=== PATIENT | female | born 2000 | race Caucasian/White ===

== ENCOUNTER → 2021-11-28 16:03 | Outpatient (BNVA) | payer MEDICAID, SELFPAY | PROVIDERS: Family Provider Pediatrics; Visit Provider Nurse Practitioner Family | DX: R05.9 Cough, unspecified (principal); J10.1 Influenza due to other identified influenza virus with other respiratory manifestations | CPT/HCPCS: 87400 ==

== ENCOUNTER → 2022-05-15 11:31 | Outpatient (BNVA) | payer OTHER, MEDICAID, SELFPAY | PROVIDERS: Family Provider Pediatrics; Visit Provider Emergency Medicine | DX: J32.9 Chronic sinusitis, unspecified (principal); B34.9 Viral infection, unspecified; Z20.822 Contact with and (suspected) exposure to COVID-19 | CPT/HCPCS: 87426 ==

== ENCOUNTER 2023-08-12 20:12 | Emergency (ER) | payer MEDICARE, MEDICAID, SELFPAY ==
[2023-08-12 20:16] VITALS: BP 110/69; PULSE 84; RESP 16; TEMP 36.5; O2SAT 98; BMI 22.5
--- NOTE | 2023-08-12 20:39 | W.ED.ABDPA2 ---
HPI - Abdominal Pain General: Chief Complaint: Abdominal Pain Stated Complaint: fever, body aches, hurt stomach Time Seen by Provider: 08/12/23 20:15 History of Present Illness: 23-year-old female comes in today with bodyaches, cough, stuffy nose, lower abdominal pain, starting this morning. Patient appears mildly unwell but not toxic. Patient has Down syndrome. Patient has a history of constipation. Patient has had cardiac surgery in [facility]. Associated Symptoms: Denies fever(s) and vomiting Review of Systems General: Reports: 10 or more systems reviewed and unremarkable except in HPI and below Const: Reports: body aches; Denies: fever(s) Eyes: Denies: eye discomfort ENMT: Reports: nasal congestion Card: Denies: chest pain Resp: Denies: dyspnea GI: Reports: abdominal pain; Denies: vomiting : Denies: difficulty voiding Musc: Denies: neck pain or back pain Skin/Breast: Denies: rash Neuro: Denies: headache(s) [facility] PFSH: Medical History Down syndrome Social History Smoking and tobacco/nicotine status: never used tobacco/nicotine Second hand smoke exposure: No Alcohol intake: never Substance/Drug Use: never Adopted: Yes Physical Exam Const: COMMON NORMALS: alert HENMT: COMMON NORMALS: normocephalic HEAD & SCALP: normocephalic NOSE: Nasal discharge present MOUTH: Normal oral and palatal mucosa present THROAT: posterior oropharynx normal Neck/C-Spine: COMMON NORMALS: full ROM Resp: COMMON NORMALS: normal respiratory effort and clear to auscultation bilaterally AUSCULTATION: clear to auscultation bilaterally Cardio: COMMON NORMALS: regular rate and regular rhythm RATE: regular rate RHYTHM: regular rhythm GI: COMMON NORMALS: Soft to palpation AUSCULTATION: Yes normoactive bowel sounds PALPATION: Yes Soft to palpation and Yes Tenderness to palpation present (GI) (Bilateral lower abdomen) : COMMON NORMALS: Yes no CVA tenderness BLADDER/KIDNEY EXAM: Yes no CVA tenderness Back/Pelvis: COMMON NORMALS: no CVA tenderness and thoracic and lumbar spine normal to inspection Extremity: COMMON NORMALS: normal to inspection Neuro: SENSORIUM/ORIENTATION: Yes alert Skin: COMMON NORMALS: turgor normal GENERAL SKIN EXAM: turgor normal Course Vital Signs: Vital signs: Vital Signs Temperature 97.7 F 08/12/23 20:16 Pulse Rate 84 08/12/23 20:16 Respiratory Rate 16 08/12/23 20:16 Blood Pressure 110/69 08/12/23 20:16 Pulse Oximetry 98 08/12/23 20:16 MDM - Abdominal Pain Medical Decision Making Patient was brought in by father aysha for concerns of lower abdominal pain. On exam patient's abdomen was soft with tenderness in the lower abdomen. Bowel sounds are present. Negative psoas sign. Skin is warm and dry. Vital signs are normal. Differential diagnosis includes but not limited to constipation, urinary tract infection, appendicitis, viral syndrome. CBC, CMP, CRP were normal. Urinalysis had a increased amount of white blood cells but also was contaminated with skin cells. Respiratory 2 panel was outstanding and patient will call back for results. We will go ahead and treat for mild urinary tract infection with cephalexin 250 twice a day for 5 days. This may also help with patient is constipated as cephalexin often will cause the bowels increase peristalsis. Father and patient both report understanding and agreed to plan. Lab Data 08/12/23 21:30 08/12/23 21:30 Labs/Radiology: Laboratory Results WBC 10.70 10^3/uL (3.29-11.43) 08/12/23 21:30 RBC 4.91 10^6/uL (3.85-5.65) 08/12/23 21:30 Hgb 15.60 g/dL (11.27-16.99) 08/12/23 21:30 Hct 46.0 % (36-47) 08/12/23 21:30 MCV 93.7 fl (85-98) 08/12/23 21:30 MCH 31.8 pg (27-33) 08/12/23 21: MCHC 33.9 g/dL (30-55) 08/12/23 21:30 RDW 12.8 % (12.1-15.1) 08/12/23 21:30 Plt Count 195 10^3/cmm (157-399) 08/12/23 21:30 MPV 9.4 fL (7.4-10.4) 08/12/23: Neut % (Auto) 87.5 % 08/12/23 21: Lymph % (Auto) 6.9 % 08/12/23 21:30 Person % (Auto) 3.6 % 08/12/23 21:30 Eos % (Auto) 1.1 % 08/12/23 21:30 Baso % (Auto) 0.5 % 08/12/23 21:30 Neut # (Auto) 9.36 10^3/uL (1.8-7.7) H 08/12/23 21:30 Lymph # (Auto) 0.7 10^3/uL (0.8-4.8) L 08/12/23 21: Person # (Auto) 0.4 10^3/uL (0.2-0.9) 08/12/23 21:30 Eos # (Auto) 0.1 10^3/uL (0.0-0.8) 08/12/23 21: Baso # (Auto) 0.1 10^3/uL (0.0-0.1) 08/12/23 21: Nucleated RBC % (auto) 0 % 08/12/23 21: Nucleated RBCs # 0.0 /100WBC 08/12/23 21:30 Sodium 139 mmol/L (136-145) 08/12/23 21:30 Potassium 3.9 mmol/L (3.5-5.1) 08/12/23 21:30 Chloride 104 mmol/L (98-107) 08/12/23 21: Carbon Dioxide 25 mmol/L (22-29) 08/12/23 21: Anion Gap 13.9 (5-19) 08/12/23 21:30 BUN 13 mg/dL (6-20) 08/12/23 21:30 Creatinine 0.7 mg/dL (0.5-0.9) 08/12/23 21:30 GFR Calculation 104.6 mL/min (90-130) 08/12/23 21:30 Glucose 101 mg/dL (65-115) 08/12/23 21:30 Calculated Osmolality 288 mOsm/kg (285-295) 08/12/23 21: Calcium 9.7 mg/dL (8.5-10.5) 08/12/23 21:30 Total Bilirubin 0.7 mg/dL (0.15-1.2) 08/12/23 21:30 AST 19 U/L (0-32) 08/12/23 21:30 ALT 15 U/L (0-33) 08/12/23 21:30 Alkaline Phosphatase 101 U/L (35-105) 08/12/23 21:30 C-Reactive Protein 3.5 mg/L (0.0-4.9) 08/12/23: Total Protein 8.5 g/dL (6.6-8.7) 08/12/23: Albumin 4.7 g/dL (3.5-5.2) 08/12/23: Globulin 3.8 g/dL (1.3-4.6) 08/12/23 21:30 HCG, Qual Negative (Negative) 08/12/23 22:05 Urine Color Yellow (Yellow) 08/12/23 22:05 Urine Appearance Sl hazy (CLEAR) A 08/12/23 22:05 Urine pH 5 (5-7) 08/12/23 22:05 Ur Specific [place] 1.020 (1.005-1.030) 08/12/23 22:05 Urine Protein Neg (Negative) 08/12/23 22:05 Urine Glucose (UA) Norm (Normal) 08/12/23 22:05 Urine Ketones Negative (Negative) 08/12/23 22:05 Urine Blood Neg (Negative) 08/12/23 22:05 Urine Nitrate Negative (Negative) 08/12/23 22:05 Urine Bilirubin Neg (Negative) 08/12/23 22:05 Urine Urobilinogen 1 mg/dL (Negative) H 08/12/23 22:05 Ur Leukocyte Esterase Trace (Negative) H 08/12/23 22:05 Urine RBC 5-10 /hpf (0-2) H 08/12/23 22:05 Urine WBC 5-10 /hpf (0-5) H 08/12/23 22:05 Ur Squamous Epith Cells 15-25 /hpf (0-5) H 08/12/23 22:05 Amorphous Sediment Not Reportable 08/12/23 22:05 Urine Bacteria 2+ /hpf (NONE) H 08/12/23 22:05 Group A Strep Rapid Negative (Negative) 08/12/23 21:38 No radiology studies performed this visit Discharge Plan Discharge Patient Disposition: Home Clinical Impression: High urine leukocyte count Abdominal pain Qualifiers: Abdominal location: lower abdomen, unspecified Qualified Code(s): R10.30 - Lower abdominal pain, unspecified Condition: Stable Prescriptions: New cephalexin 250 mg capsule 250 mg PO BID 5 Days Qty: 10 0RF No Action loratadine [Claritin] 10 mg tablet 10 mg PO DAILY Qty: 30 5RF Discharge Orders: Discharge ED (Routine); Ordered 08/12/23 Ordered By: Wilfredo Carreon Referrals: Bc Tavares FNP-C [Primary Care Provider] - Discharge Diet: Usual diet Discharge Activity: Increase activity as tolerated Patient Instructions: Abdominal Pain (ED) Activity Restrictions/Additional Instructions: Encourage plenty of water. Use acetaminophen and/or ibuprofen as needed for pain. Use antibiotic cephalexin 250 mg twice daily for 5 days. Follow-up with primary care for recheck of urine in 3 to 5 days. Return to ER for worsening symptoms such as inability to hold fluids down, blood in vomit or stool, no urine output within 8 to 12 hours, or new concerns. Coding Level of Care Code ED Information Assurance Analyst for Agnes Francois
[2023-08-12 21:39] LABS: Basophils # 0.1 10^3/uL (0.0-0.1); Basophils % 0.5 %; Eosinophils # 0.1 10^3/uL (0.0-0.8); Eosinophils % 1.1 %; Lymphocytes # 0.7 10^3/uL (0.8-4.8); Lymphocytes % 6.9 %; Mean Corpuscular HGB Conc 33.9 g/dL (30-55); Mean Corpuscular Hemoglobin 31.8 pg (27-33); Mean Corpuscular Volume 93.7 fl (85-98); Mean Platelet Volume 9.4 fL (7.4-10.4); Monocytes # 0.4 10^3/uL (0.2-0.9); Monocytes % 3.6 %; Neutrophils # 9.36 10^3/uL (1.8-7.7); Neutrophils % 87.5 %; Nucleated Red Blood Cells % 0 %; Platelet Count 195 10^3/cmm (157-399); Red Blood Count 4.91 10^6/uL (3.85-5.65); Red Cell Distribution Width 12.8 % (12.1-15.1)
[2023-08-12 22:01] LABS: Rapid Strep A Test Negative (Negative)
[2023-08-12 22:05] LABS: Alanine Aminotransferase 15 U/L (0-33); Albumin Level 4.7 g/dL (3.5-5.2); Alkaline Phosphatase 101 U/L (35-105); Anion Gap 13.9 (5-19); Aspartate Amino Transferase 19 U/L (0-32); Blood Urea Nitrogen 13 mg/dL (6-20); C Reactive Protein 3.5 mg/L (0.0-4.9); Calcium 9.7 mg/dL (8.5-10.5); Carbon Dioxide 25 mmol/L (22-29); Chloride 104 mmol/L (98-107); Globulin 3.8 g/dL (1.3-4.6); Glomerular Filtration Rate 104.6 mL/min (90-130); Glucose 101 mg/dL (65-115); Osmolality Calculated 288 mOsm/kg (285-295); Potassium 3.9 mmol/L (3.5-5.1); Sodium 139 mmol/L (136-145); Total Bilirubin 0.7 mg/dL (0.15-1.2); Total Protein 8.5 g/dL (6.6-8.7)
[2023-08-12 22:27] LABS: Add Urine Culture? No; Add Urine Microscopic? YES; Bacteria Urine 2+ /hpf; Bilirubin Urine Neg (Negative); Blood Urine Neg (Negative); Glucose Urine UA Norm (Normal); HCG Qualitative Urine. Negative (Negative); Ketones Urine Negative (Negative); Leukocyte Esterase Urine Trace (Negative); Nitrate Urine Negative (Negative); Protein Urine Neg (Negative); Squamous Epithelial Cell Urine 15-25 /hpf (0-5); Urine Appearance SL Hazy (CLEAR); Urine Color Yellow (Yellow); Urobilinogen Urine 1 mg/dL (Negative); pH Urine 5 (5-7)
[2023-08-12] MEDS: cephALEXin 500 mg Capsule PO (22:53)
[2023-08-12 22:57] VITALS: PULSE 80; RESP 16; O2SAT 98
[2023-08-12 23:35] LABS: Adenovirus Not Detected (NOT DETECT); Chlamydia Pneumoniae Not Detected (NOT DETECT); Coronavirus 229E,HKU1,NL63,OC4 Not Detected (NOT DETECT); Human Metapneumovirus Not Detected (NOT DETECT); Human Rhinovirus/Enterovirus Not Detected (NOT DETECT); Influenza A Not Detected (NOT DETECT); Influenza A H1 Not Detected (NOT DETECT); Influenza A H1-2009 Not Detected (NOT DETECT); Influenza A H3 Not Detected (NOT DETECT); Influenza B Not Detected (NOT DETECT); Mycoplasma Pneumoniae Not Detected (NOT DETECT); Parainfluenza Virus Type 1 Not Detected (NOT DETECT); Parainfluenza Virus Type 2 Not Detected (NOT DETECT); Parainfluenza Virus Type 3 Not Detected (NOT DETECT); Parainfluenza Virus Type 4 Not Detected (NOT DETECT); Respiratory Syncytial Virus A Not Detected (NOT DETECT); Respiratory Syncytial Virus B Not Detected (NOT DETECT); SARS-COV-2 Not Detected (NOT DETECT)
== END 2023-08-12 22:56 | disposition home or self-care (01) ==
PROVIDERS: Emergency Provider Nurse Practitioner Family; PCP Nurse Practitioner
DX: R10.30 Lower abdominal pain, unspecified (principal); R82.998 Other abnormal findings in urine; Q90.9 Down syndrome, unspecified
CPT/HCPCS: 36415; 80053; 81001; 81025; 85025; 86140; 87081; 87486; 87581; 87633; 87880; 99283